=== PATIENT | male | born 1940 | race Caucasian/White ===

== ENCOUNTER 2017-01-29 06:34 | Inpatient (IN) | payer OTHER, BC ==
[2017-01-20 13:49] LABS: HEMATOCRIT 36.1 % (40.0-51.0); HEMOGLOBIN 12.7 g/dL (13.6-17.8)
--- NOTE | ~2017-01-29 | OP ---
Record Of Operation [facility] [address] [place]. [address] NAME: LASHAY VELEZ : 38 STATUS : ADM IN PAT#: [id number] AGE: 76 ADM/REG DATE : 01/29/17 MR#: [id number] REPORT SERV DATE: 01/29/17 DICTATED BY: OBED RETANA DATE: 01/29/17 REPORT STATUS : Draft TRANSCRIBED BY: MODL DATE: 01/29/17 DATE OF PROCEDURE: 01/29/2017 PREOPERATIVE DIAGNOSIS: Prostate cancer. POSTOPERATIVE DIAGNOSIS: Prostate cancer. PROCEDURES: Robotic-assisted laparoscopic radical prostatectomy with right laparoscopic pelvic lymph node dissection. SURGEON: Obed Retana M.D. 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 ANESTHESIA: General. PREOPERATIVE INDICATIONS: A 76-year-old male with a negative family history of prostate cancer, presented with a PSA of 7.9, while on alpha reductase inhibitors. Adjusted PSA was approximately 16. This was pursued with ultrasound-guided biopsies identifying a Sonia 8, 4+4 prostate cancer involving all six cores on the right. CT scan and bone scan were negative for extraprostatic disease. He had significant lower urinary tract symptoms and was not interested in primary radiation therapy and instead preferred surgical management with a robotic approach with the understanding that he would likely require multimodal therapy. DESCRIPTION OF OPERATIVE PROCEDURE: Following adequate general anesthesia, the patient was placed in the modified lithotomy position well padded and secured to the table and placed in a steep Trendelenburg position. He was noted to be safely secured to the table and was returned to a level position where he was prepped and draped in the usual sterile fashion. A 16-Yemeni catheter was placed into the bladder from the operative field. A pneumoperitoneum was achieved with a Veress needle. A 12 mm port was placed in the left upper quadrant with the OptiJamclouds system. The camera was placed into the abdomen, the abdomen inspected, and there were no abnormal findings. There were some omental adhesions adherent to the anterior abdominal wall at the site of previous umbilical hernia repair with mesh. Under direct vision, the four robotic ports were placed as well as a left lower quadrant 8 mm port. The patient was then returned to a Trendelenburg position and docked to the robot. The omental adhesions were taken down sharply. The bladder was taken down by incising laterally along the median umbilical ligaments to the level of the vas deferens bilaterally with the electrocautery jaime. The space of Retzius was developed bluntly. Fat was dissected off the anterior surface of the prostate sharply. The endopelvic fascia was incised bilaterally and the levator muscle swept off the lateral surface of the prostate bilaterally. The dorsal vein complex was dissected out and controlled and divided with an endovascular NELSON stapler. Record Of Operation [facility] [address] [place]. [address] NAME: LASHAY VELEZ : 38 STATUS : ADM IN PAT#: [id number] AGE: 76 ADM/REG DATE : 01/29/17 MR#: [id number] REPORT SERV DATE: 01/29/17 DICTATED BY: OBED RETANA DATE: 01/29/17 REPORT STATUS : Draft TRANSCRIBED BY: CATY DATE: 01/29/17 The bladder neck was then incised at its junction with the base of the prostate with the electrocautery spatula. The bladder was entered. The catheter was grasped with a ProGrasp grasper and used for anterior retraction of the prostate. The posterior bladder neck was developed and incised with the electrocautery spatula. A plane was bluntly developed between the posterior bladder neck and prostate. The bladder neck was noted to be especially thick and inflamed. The anterior Denonvilliers fascia was incised to expose the vas deferens and seminal vesicles. The vas deferens were dissected out bluntly, divided sharply, and the ends of the vas deferens grasped with the ProGrasp grasper for additional anterior retraction on the prostate. There was a fair amount of edema surrounding seminal vesicles and vas deferens. The seminal vesicles were dissected out bluntly, their blood supply controlled with interlocking clips, and then divided sharply at their base. The bladder neck was inspected and did require minor reconstruction with two [id number] 3-0 Vicryl sutures at the 3 and 9 o'clock positions taking care to avoid the ureteral orifices. Posterior Denonvilliers fascia was incised and a plane was bluntly developed between the rectum and prostate. The levator fascia was incised bilaterally. The left neurovascular bundle was bluntly and easily dissected away from the posterolateral surface of the prostate. The right neurovascular bundle was intentionally sacrificed due to its high volume, high-grade disease from base to apex on the right. Pedicles were controlled with interlocking clips and divided sharply with round-tip scissors. The urethra was dissected out with the round-tip scissors. The dorsal vein complex was secured to the pubic periosteum with a [id number] 2-0 Monocryl suture. The urethra was then divided sharply at the prostatourethral junction. The catheter was withdrawn. The posterior urethra was divided as well as the remaining apical attachments and the prostate was freed. A right laparoscopic pelvic lymph node dissection was performed with the margins of dissection being the anterior surface of the external iliac vein, the bifurcation of the external and internal iliac artery and the pelvic sidewall, both anterior and posterior to the obturator nerve. Margins were controlled with interlocking clips and the specimen divided sharply with round-tip scissors. The jb specimen and prostate were placed in an EndoCatch sac and placed out of the view of the operative field. Anterior prostatic fat had been sent separately in view of the high-grade disease. The pelvis was irrigated with sterile water and antibiotic solution, carefully inspected. There was excellent hemostasis and no apparent rectal injury. Posterior Denonvilliers fascia was reapproximated to the posterior urethral plate with a running 3-0 V-Loc suture in a Davon stitch fashion. The urethrovesical anastomosis was then performed with a running 3- 0 V-Loc suture over a 20-Yemeni catheter. The balloon was filled with 10 mL of sterile water. The bladder was irrigated with sterile water, and there was a watertight anastomosis. A 19 Hira drain was passed through one of the robotic ports and placed into the pelvis. The port was removed, its exit site demonstrating good hemostasis. The drain was fixed to the skin with 2-0 Prolene suture. The patient was de-docked from the robot and returned to a level position. The remaining trocars were removed under direct vision, their exit sites demonstrating good hemostasis. The periumbilical port was used to guide a transverse fascial incision to allow intact retrieval of the specimen. This was closed with 6 interrupted #1 Ethibond sutures. The periumbilical wound and port sites were irrigated with antibiotic solution and skin edges reapproximated with skin clips. The drain was left Record Of Operation [facility] [id number] [facility] [place]. [address] NAME: LASHAY VELEZ : 38 STATUS : ADM IN PAT#: [id number] AGE: 76 ADM/REG DATE : 01/29/17 MR#: [id number] REPORT SERV DATE: 01/29/17 DICTATED BY: OBED RETANA DATE: 01/29/17 REPORT STATUS : Draft TRANSCRIBED BY: CATY DATE: 01/29/17 to jonede suction. The catheter was left to gravity drainage. Bandages were applied and the procedure was concluded. He was awakened from his anesthesia, had tolerated it well, and transferred to the recovery room in satisfactory condition. NORM/CATY Obed Retana M.D. / [id number] CC: Obed Retana M.D.
[~2017-01-29 06:34] MED LIST: ASAB PO; PROSCAR5 PO; STOOL SOFTEN240 MG PO; UROXATRAL PO; VITAMIN D1000 UNI1 PO; ZOCOR20 PO
[2017-01-29 13:03] LABS: HEMATOCRIT 36.2 % (40.0-51.0); HEMOGLOBIN 12.6 g/dL (13.6-17.8)
[2017-01-29 13:11] LABS: CREATININE 0.96 MG/DL (0.70-1.30); POTASSIUM, SERUM 4.1 MMOL/L (3.5-5.3)
== END 2017-01-30 14:32 | disposition home or self-care (01) | DRG 708 ==
LOC: SDC/OF 06:34 → PACU 12:33 → 4SO 15:15
PROVIDERS: Urology
PROC: 0VTQ4ZZ Resection of Bilateral Vas Deferens, Percutaneous Endoscopic Approach (ICD-10-PCS; principal; 2017-01-29 07:30)
PROC: 8E0W4CZ Robotic Assisted Procedure of Trunk Region, Percutaneous Endoscopic Approach (ICD-10-PCS; principal; 2017-01-29 07:30)
PROC: 0VT04ZZ Resection of Prostate, Percutaneous Endoscopic Approach (ICD-10-PCS; principal; 2017-01-29 07:30)
PROC: 07BC4ZX Excision of Pelvis Lymphatic, Percutaneous Endoscopic Approach, Diagnostic (ICD-10-PCS; principal; 2017-01-29 07:30)
PROC: 0VT34ZZ Resection of Bilateral Seminal Vesicles, Percutaneous Endoscopic Approach (ICD-10-PCS; principal; 2017-01-29 07:30)
DX: C61 Malignant neoplasm of prostate (principal)
CPT/HCPCS: 82565; 84132; 85014; 85018; 88304; 88305; 88307; 88309; 88342; 93005; A9270-GY; J0690; J1170; J1885; J2250; J2370; J2405; J2710; J2795; J3010